=== PATIENT | female | born 1985 | race African-American/Black ===

== ENCOUNTER 2017-03-10 21:38 | Emergency (ER) | payer BC, OTHER ==
[2017-03-11] MEDS ORDERED: ACETAMINOPHEN 325 MG TABLET PO ONE (01:00)
[2017-03-11] MEDS ORDERED: ONDANSETRON 4 MG TAB.RAPDIS SL ONE (01:00)
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
[2017-03-11 02:02] VITALS: BP 110/89
== END 2017-03-11 01:58 | disposition home or self-care (01) ==
LOC: ER 21:38
DX: S39.012A Strain of muscle, fascia and tendon of lower back, initial encounter (principal); S46.912A Strain of unspecified muscle, fascia and tendon at shoulder and upper arm level, left arm, initial encounter; M25.512 Pain in left shoulder; V49.40XA Driver injured in collision with unspecified motor vehicles in traffic accident, initial encounter; E11.9 Type 2 diabetes mellitus without complications
CPT/HCPCS: 99283; 82962; 72110; 73030; S0119

== ENCOUNTER 2017-03-31 07:15 | Emergency (ER) | payer BC, OTHER ==
[2017-03-31 07:28] VITALS: BP 166/106
[2017-03-31 07:57] LABS: APPEARANCE,URINE CLEAR; BILIRUBIN,URINE NEGATIVE (NEGATIVE); GLUCOSE, URINE NEGATIVE (NEGATIVE); KETONES,URINE NEGATIVE (NEGATIVE); LEUKOCYTE ESTERASE,URINE NEGATIVE (NEGATIVE); NITRITE,URINE NEGATIVE (NEGATIVE); PROTEIN,URINE 100 mg/dL (NEGATIVE); URINE SPECIFIC GRAVITY 1.011; UROBILINOGEN,URINE NEGATIVE mg/dL (<2.0)
--- NOTE | 2017-03-31 08:25 | ER Document Report ---
ED General - General Chief Complaint: Urinary Frequency Stated Complaint: URINARY ISSUES Time Seen by Provider: 03/31/17 08:05 TRAVEL OUTSIDE OF THE [place] IN LAST 30 DAYS: No - HPI Patient complains to provider of: Dysuria Notes: Patient coming in with 3 days of dysuria back pain. Patient states pain upon initiation in the midstream. Patient states similar to UTIs in the past. Denies any fever chills nausea vomiting denies any flank pain. Patient is well- hydrated denies any vaginal discharge - Related Data Allergies/Adverse Reactions: No Known Allergies Allergy (Verified 03/31/17 07:28) Past Medical History - Social History Smoking Status: Never Smoker Frequency of alcohol use: None Drug Abuse: None Family History: Reviewed & Not Pertinent Patient has suicidal ideation: No Patient has homicidal ideation: No Pulmonary Medical History: Denies: Hx Asthma, Hx Bronchitis, Hx Pneumonia Neurological Medical History: Reports: Hx Migraine Endocrine Medical History: Reports: Hx Diabetes Mellitus Type 2 Renal/ Medical History: Denies: Hx Peritoneal Dialysis - Immunizations Hx Diphtheria, Pertussis, Tetanus Vaccination: Yes Review of Systems - Review of Systems Constitutional: No symptoms reported EENT: No symptoms reported Cardiovascular: No symptoms reported Respiratory: No symptoms reported Gastrointestinal: No symptoms reported Genitourinary: Dysuria Female Genitourinary: No symptoms reported Musculoskeletal: No symptoms reported Skin: No symptoms reported Hematologic/Lymphatic: No symptoms reported Neurological/Psychological: No symptoms reported -: Yes All other systems reviewed and negative Physical Exam - Vital signs Vitals: Temp Pulse Resp BP Pulse Ox 98.6 F 89 18 166/106 H 100 03/31/17 07:22 03/31/17 07:22 03/31/17 07:22 03/31/17 07:22 03/31/17 07:22 Interpretation: Normal - General General appearance: Appears well, Alert - HEENT Head: Normocephalic, Atraumatic Eyes: Normal Pupils: PERRL - Respiratory Respiratory status: No respiratory distress Chest status: Nontender Breath sounds: Normal Chest palpation: Normal - Cardiovascular Rhythm: Regular Heart sounds: Normal auscultation Murmur: No - Abdominal Inspection: Normal Distension: No distension Bowel sounds: Normal Tenderness: Nontender Organomegaly: No organomegaly - Back Back: Normal, Nontender - Extremities General upper extremity: Normal inspection, Nontender, Normal color, Normal ROM , Normal temperature General lower extremity: Normal inspection, Nontender, Normal color, Normal ROM , Normal temperature, Normal weight bearing. No: Reed's sign - Neurological Neuro grossly intact: Yes Cognition: Normal Orientation: AAOx4 [place] Coma Scale Eye Opening: Spontaneous [place] Coma Scale Verbal: Oriented [place] Coma Scale Motor: Obeys Commands [place] Coma Scale Total: 15 Speech: Normal Motor strength normal: LUE, RUE, LLE, RLE Sensory: Normal - Psychological Associated symptoms: Normal affect, Normal mood - Skin Skin Temperature: Warm Skin Moisture: Dry Skin Color: Normal Course - Re-evaluation Re-evalutation: 03/31/17 14:55 Patient with uncomplicated UTI per HPI. Patient was started on Macrobid and discharged. - Vital Signs Vital signs: Temp Pulse Resp BP Pulse Ox 98.6 F 89 18 166/106 H 100 03/31/17 07:22 03/31/17 07:22 03/31/17 07:22 03/31/17 07:22 03/31/17 07:22 - Laboratory Laboratory results interpreted by me: 03/31/17 07:34 Urine Protein 100 H Urine Blood MODERATE H Discharge - Discharge Clinical Impression: UTI (urinary tract infection) Qualifiers: Urinary tract infection type: site unspecified Hematuria presence: with hematuria Qualified Code(s): N39.0 - Urinary tract infection, site not specified Disposition: HOME, SELF-CARE Instructions: Urinary Tract Infection ([facility]), Urinary Anesthetic Agent ([facility]), Nitrofurantoin ([facility]) Additional Instructions: Urinalysis is signs and symptoms of the beginning of a urinary tract infection. We will treat with 5 days of Macrobid. Please take all the antibiotics. He may also take the Pyridium prescribed for pain control Tylenol Motrin for pain control. He may ask her pharmacist about [id number] Azo if the Pyridium is too expensive. Prescriptions: Nitrofurantoin/Nitrofuran Mac [Macrobid 100 mg Capsule] 1 tab PO BID #10 capsule Phenazopyridine HCl [Pyridium 100 Mg Tablet] 100 mg PO TID #15 tablet Forms: Return to Work Referrals: REY TRIPP MD [Primary Care Provider] - Follow up as needed
== END 2017-03-31 08:45 | disposition home or self-care (01) ==
LOC: ER 07:15
DX: N39.0 Urinary tract infection, site not specified (principal); E11.9 Type 2 diabetes mellitus without complications
CPT/HCPCS: 81001; 81025; 99283

== ENCOUNTER → 2017-08-20 | Outpatient (CLI) | payer BC ==
[2017-08-20 16:14] LABS: ALANINE AMINOTRANSFERASE 24 U/L (9-52); ALKALINE PHOSPHATASE 68 U/L (38-126); ANION GAP 9 (5-19); ASPARTATE AMINO TRANSFERASE 21 U/L (14-36); BILIRUBIN,DIRECT 0.1 mg/dL (0.0-0.4); BILIRUBIN,TOTAL 0.2 mg/dL (0.2-1.3); BLOOD UREA NITROGEN 19 mg/dL (7-20); CALCIUM 8.8 mg/dL (8.4-10.2); CARBON DIOXIDE 22 mmol/L (22-30); CHLORIDE 106 mmol/L (98-107); GLUCOSE 93 mg/dL (75-110); LDH 318 U/L (313-618); POTASSIUM 4.3 mmol/L (3.6-5.0); SODIUM 136.5 mmol/L (137-145); TOTAL PROTEIN 6.3 g/dL (6.3-8.2); URIC ACID 6.8 mg/dL (2.5-6.2)
== END ==
LOC: OCH 14:23
PROVIDERS: ATTEND Nurse Practitioner Women's Health
DX: Z34.01 Encounter for supervision of normal first pregnancy, first trimester (principal)
CPT/HCPCS: 36415; 80053; 83615; 84550

== ENCOUNTER 2018-02-25 14:59 | Emergency (ER) | payer BC, MEDICAID ==
--- NOTE | 2018-02-25 16:01 | ER Document Report ---
ED Blood Pressure Problem - General Mode of Arrival: Ambulatory Information source: Patient TRAVEL OUTSIDE OF THE [place] IN LAST 30 DAYS: No - General Chief Complaint: High Blood Pressure Stated Complaint: BLOOD PRESSURE ISSUES Time Seen by Provider: 02/25/18 15:28 Notes: 32 y.o female presents to the ED from the [facility] with elevated blood pressure. Pt reports that she just had an ultrasound at [facility], confirming that she has a valid intrauterine . She reports that someone from the [facility] called in a prescription for HTN. She states that she was told to come here concerning her BP and to get a dose of BP medication before getting her medication from the pharmacy. Pt denies any WALLER, dizziness or vomiting. Patient reports a miscarriage earlier this year; A1. (LIZ HARRIS) - Related Data Allergies/Adverse Reactions: No Known Allergies Allergy (Verified 02/25/18 15:00) Past Medical History - General Information source: Patient - Social History Smoking Status: Unknown if Ever Smoked Family History: Reviewed & Not Pertinent Neurological Medical History: Reports: Hx Migraine Endocrine Medical History: Reports: Hx Diabetes Mellitus Type 2 Renal/ Medical History: Denies: Hx Peritoneal Dialysis - Immunizations Hx Diphtheria, Pertussis, Tetanus Vaccination: Yes Review of Systems - Review of Systems Constitutional: No symptoms reported EENT: No symptoms reported Cardiovascular: See HPI, Other - elevated BP. denies: Dizziness Respiratory: No symptoms reported Gastrointestinal: See HPI. denies: Vomiting Genitourinary: No symptoms reported Female Genitourinary: See HPI, Musculoskeletal: No symptoms reported Skin: No symptoms reported Hematologic/Lymphatic: No symptoms reported Neurological/Psychological: See HPI. denies: Headaches -: Yes All other systems reviewed and negative Physical Exam - Vital signs Vitals: Temp Pulse Resp BP Pulse Ox 98.1 F 83 18 178/101 H 98 02/25/18 15:09 02/25/18 15:09 02/25/18 15:02/25/18 15:02/25/18 15:09 - Notes Notes: Physical Exam: General: Alert, appears well. HEENT: Normocephalic. Atraumatic. PERRL. Extraocular movements intact. Oropharynx clear. Neck: Supple. Non-tender. Respiratory: No respiratory distress. Clear and equal breath sounds bilaterally. Cardiovascular: Regular rate and rhythm. Abdominal: Normal Inspection. Non-tender. No distension. Normal Bowel Sounds. Back: Non-tender. No deformity or step off. Extremities: Moves all four extremities. Upper extremities: Normal inspection. Normal ROM. Lower extremities: Normal inspection. No edema. Normal ROM. Neurological: Normal cognition. AAOx3. Normal speech. Psychological: Normal affect. Normal Mood. Skin: Warm. Dry. Normal color. (LIZ HARRIS) - Re-evaluation Re-evalutation: 02/25/18 16:03 Patient was sent from [facility] for concern of hypertension. They prescribed her 200 mg labetalol twice a day she has not picked it up yet she was told to come the emergency department. I discussed this case with Dr. Cunningham. He states that she should not have been sent to emergency room and he agrees not acutely lowering patient's blood pressure who is not symptomatic. She does not have any headaches vision changes dizziness chest pain or shortness of breath. We will provide first dose of labetalol since she is in the emergency department instructed to pecan picker her prescription tonight so she can start taking it in the morning. She has follow-up appointment with [facility] this coming Thursday. 02/25/18 16:04 Of note, she has pictures of valid intrauterine from ultrasound that was performed at [facility] today. (GONZALEZ PUENTE) - Vital Signs Vital signs: Temp Pulse Resp BP Pulse Ox 97.9 F 85 18 152/97 H 99 02/25/18 16:15 02/25/18 16:15 02/25/18 16:15 02/25/18 16:15 02/25/18 16:15 Discharge - Discharge Clinical Impression: Qualifiers: Weeks of gestation: 9 weeks Qualified Code(s): Z3A.09 - 9 weeks gestation of Disposition: HOME, SELF-CARE Instructions: Hypertension in ([facility]) Additional Instructions: Please follow-up with [facility] with your previously scheduled appointment this coming Thursday. Please begin taking the blood pressure medications they prescribed to you Referrals: RACQUEL LEMUS NP [NO LOCAL MD] - Follow up as needed Scribe Attestation: 02/25/18 22:57 I personally performed the services described documentation, reviewed and edited the documentation which was dictated to describe my presence, and it accurately records my words and actions. (GONZALEZ PUENTE) Scribe Documentation - Scribe Written by Froilan:: Froilan Queen 02/25/18 [id number] acting as scribe for :: Lee
[2018-02-25] MEDS ORDERED: LABETALOL HCL 200 MG TABLET PO ONE (16:06)
[2018-02-25 16:37] VITALS: BP 152/97
== END 2018-02-25 16:17 | disposition home or self-care (01) ==
LOC: ER 14:59
DX: O16.1 Unspecified maternal hypertension, first trimester (principal); O24.911 Unspecified diabetes mellitus in pregnancy, first trimester; Z3A.09 9 weeks gestation of pregnancy; Z79.899 Other long term (current) drug therapy
CPT/HCPCS: 99283

== ENCOUNTER 2018-04-02 13:15 | Emergency (ER) | payer BC, MEDICAID ==
--- NOTE | 2018-04-02 14:07 | ER Document Report ---
ED Medical Screen (RME) - General Chief Complaint: Chest Pain Stated Complaint: RIGHT SIDE PAIN Time Seen by Provider: 04/02/18 14:04 Mode of Arrival: Ambulatory Information source: Patient TRAVEL OUTSIDE OF THE [place] IN LAST 30 DAYS: No - HPI Patient complains to provider of: R side pain Onset: Yesterday - pt is approx 15 wks with c/o R-sided abd pain for the past day - Related Data Allergies/Adverse Reactions: No Known Allergies Allergy (Verified 02/25/18 15:00) Past Medical History - Past Medical History Cardiac Medical History: Reports: Hx Hypertension Pulmonary Medical History: Denies: Hx Asthma, Hx Bronchitis, Hx Pneumonia Neurological Medical History: Reports: Hx Migraine Endocrine Medical History: Reports: Hx Diabetes Mellitus Type 2 Renal/ Medical History: Denies: Hx Peritoneal Dialysis - Immunizations Hx Diphtheria, Pertussis, Tetanus Vaccination: Yes Physical Exam - Vital signs Vitals: Temp Pulse Resp BP Pulse Ox 98.2 F 85 18 158/95 H 100 04/02/18 13:22 04/02/18 13:22 04/02/18 13:22 04/02/18 13:22 04/02/18 13:22 Course - Vital Signs Vital signs: Temp Pulse Resp BP Pulse Ox 98.2 F 85 18 158/95 H 100 04/02/18 13:22 04/02/18 13:22 04/02/18 13:22 04/02/18 13:22 04/02/18 13:22
[2018-04-02 14:56] LABS: ABSOLUTE EOSINOPHILS # (AUTO) 0.1 10^3/uL (0.0-0.6); ABSOLUTE LYMPHOCYTES (AUTO) 1.9 10^3/uL (0.5-4.7); ABSOLUTE MONOCYTES (AUTO) 0.5 10^3/uL (0.1-1.4); ABSOLUTE NEUT (AUTO) 5.3 10^3/uL (1.7-8.2); BASOPHILS % (AUTO) 0.3 % (0-2); EOSINOPHILS % (AUTO) 1.3 % (0-6); HEMATOCRIT 30.7 % (36.0-47.0); HEMOGLOBIN 10.1 g/dL (12.0-15.5); LYMPHOCYTES % (AUTO) 23.7 % (13-45); MEAN CORPUSCULAR HEMOGLOBIN 24.4 pg (27.0-33.4); MEAN CORPUSCULAR HGB CONC 32.9 g/dL (32.0-36.0); MEAN CORPUSCULAR VOLUME 74 fl (80-97); MONOCYTES % (AUTO) 6.4 % (3-13); PLATELET COUNT 346 10^3/uL (150-450); RED BLOOD COUNT 4.14 10^6/uL (3.72-5.28); SEGMENTED NEUTROPHILS % (AUTO) 68.3 % (42-78); TOTAL CELLS COUNTED % (AUTO) 100 %; WHITE BLOOD COUNT 7.8 10^3/uL (4.0-10.5)
[2018-04-02 15:04] LABS: APPEARANCE,URINE CLOUDY; BILIRUBIN,URINE NEGATIVE (NEGATIVE); GLUCOSE, URINE 50 mg/dL (NEGATIVE); KETONES,URINE TRACE mg/dL (NEGATIVE); LEUKOCYTE ESTERASE,URINE NEGATIVE (NEGATIVE); NITRITE,URINE NEGATIVE (NEGATIVE); PROTEIN,URINE >=500 mg/dL (NEGATIVE); UROBILINOGEN,URINE NEGATIVE mg/dL (<2.0)
[2018-04-02 15:05] LABS: COLOR,URINE YELLOW
[2018-04-02 15:35] LABS: ALANINE AMINOTRANSFERASE 33 U/L (9-52); ALBUMIN 2.4 g/dL (3.5-5.0); ALKALINE PHOSPHATASE 66 U/L (38-126); ANION GAP 10 (5-19); ASPARTATE AMINO TRANSFERASE 35 U/L (14-36); BLOOD UREA NITROGEN 16 mg/dL (7-20); CALCIUM 8.5 mg/dL (8.4-10.2); CARBON DIOXIDE 21 mmol/L (22-30); CHLORIDE 106 mmol/L (98-107); CREATINE KINASE 528 U/L (30-135); GLUCOSE 122 mg/dL (75-110); POTASSIUM 4.2 mmol/L (3.6-5.0); SODIUM 136.6 mmol/L (137-145); TOTAL PROTEIN 5.3 g/dL (6.3-8.2)
[2018-04-02 16:05] LABS: CREATINE KINASE MB 1.98 ng/mL (<4.55)
[2018-04-02 16:07] LABS: TROPONIN I < 0.012 ng/mL
--- NOTE | 2018-04-02 16:28 | RADIOLOGY REPORT (SQ) ---
EXAM DESCRIPTION: U/S ABDOMEN LIMITED W/O DOP COMPLETED DATE/TIME: 04/02/2018 4:19 pm REASON FOR STUDY: RUQ abd pain COMPARISON: None. TECHNIQUE: Dynamic and static grayscale images acquired of the abdomen and recorded on PACS. Additio nal selected color Doppler and spectral images recorded. LIMITATIONS: None. FINDINGS: PANCREAS: No masses. Visualized pancreatic duct normal caliber. LIVER: No masses. Echotexture normal. LIVER VASCULATURE: Normal directional flow of the main portal vein and hepatic veins. GALLBLADDER: No stones. Normal wall thickness. No pericholecystic fluid. ULTRASOUND-DETECTED SADLER'S SIGN: Negative. INTRAHEPATIC DUCTS AND COMMON DUCT: CBD and intrahepatic ducts normal caliber. No filling defects. INFERIOR VENA CAVA: Normal flow. AORTA: No aneurysm. RIGHT KIDNEY: Normal size. Normal echogenicity. No solid or suspicious masses. No hydronephrosis. No calcifications. PERITONEAL AND RIGHT PLEURAL SPACE: No ascites or effusions. OTHER: No other significant findings. IMPRESSION: NORMAL RIGHT UPPER QUADRANT ULTRASOUND. TECHNICAL DOCUMENTATION: JOB ID: [id number] [employer]- All Rights Reserved Reading location - IP/workstation name: [facility][email or web address]
[2018-04-02] MEDS ORDERED: LIDOCAINE 2% VISCOUS SOLN 20 ML UDCUP PO ONE (16:31)
[2018-04-02] MEDS ORDERED: MAG HYDROX/AL HYDROX/SIMETH SUSP 30 ML UDCUP PO ONE (16:31)
--- NOTE | 2018-04-02 16:33 | ER Document Report ---
ED General - General Chief Complaint: Chest Pain Stated Complaint: RIGHT SIDE PAIN Time Seen by Provider: 04/02/18 14:04 Mode of Arrival: Ambulatory Information source: Patient Notes: Patient is currently 15 weeks . Patient complains of right-sided chest discomfort off and on since yesterday. Patient states movement increases the pain and pain is relieved with belching. Patient denies any urinary symptoms vaginal bleeding or discharge. Patient does complain of sinus congestion. Patient states that she is currently high risk and has had protein in her urine and as a result she was placed on Lovenox 1 week ago to prevent any type of blood clots. TRAVEL OUTSIDE OF THE [place] IN LAST 30 DAYS: No - HPI Onset: Yesterday Onset/Duration: Waxing and waning Quality of pain: Achy Pain Level: 3 Associated symptoms: Chest pain. denies: Nonproductive cough, Productive cough , Nausea, Vomiting, Shortness of breath Exacerbated by: Movement Relieved by: Other - Belching Similar symptoms previously: No Recently seen / treated by doctor: No - Related Data Allergies/Adverse Reactions: No Known Allergies Allergy (Verified 02/25/18 15:00) Past Medical History - General Information source: Patient - Social History Smoking Status: Never Smoker Frequency of alcohol use: None Drug Abuse: None Occupation: Customer service Family History: Reviewed & Not Pertinent Patient has suicidal ideation: No Patient has homicidal ideation: No - Past Medical History Cardiac Medical History: Reports: Hx Hypertension Pulmonary Medical History: Denies: Hx Asthma, Hx Bronchitis, Hx Pneumonia Neurological Medical History: Reports: Hx Migraine Endocrine Medical History: Reports: Hx Diabetes Mellitus Type 2 Renal/ Medical History: Denies: Hx Peritoneal Dialysis GI Medical History: Reports: Hx Gastroesophageal Reflux Disease Past Surgical History: Reports: Other - Eye surgery - Immunizations Hx Diphtheria, Pertussis, Tetanus Vaccination: Yes Review of Systems - Review of Systems Constitutional: No symptoms reported. denies: Fever EENT: No symptoms reported Cardiovascular: Chest pain. denies: Dizziness Respiratory: No symptoms reported. denies: Cough, Short of breath Gastrointestinal: No symptoms reported. denies: Abdominal pain, Nausea, Vomiting Genitourinary: No symptoms reported. denies: Dysuria Female Genitourinary: . denies: Vaginal discharge, Vaginal bleeding Musculoskeletal: No symptoms reported. denies: Back pain, Neck pain Skin: No symptoms reported Hematologic/Lymphatic: No symptoms reported Neurological/Psychological: No symptoms reported. denies: Headaches Physical Exam - Vital signs Vitals: Temp Pulse Resp BP Pulse Ox 98.2 F 85 18 158/95 H 100 04/02/18 13:22 04/02/18 13:22 04/02/18 13:22 04/02/18 13:22 04/02/18 13:22 - General General appearance: Appears well, Alert In distress: None - HEENT Head: Normocephalic, Atraumatic Eyes: Normal Conjunctiva: Normal Nasal: Normal Mouth/Lips: Normal Mucous membranes: Normal Neck: Normal, Supple. No: Lymphadenopathy - Respiratory Respiratory status: No respiratory distress Chest status: Tender Breath sounds: Normal Chest palpation: Normal - Cardiovascular Rhythm: Regular Heart sounds: S1 appreciated, S2 appreciated Murmur: No - Abdominal Inspection: Obese Distension: No distension Bowel sounds: Normal Tenderness: Nontender Organomegaly: No organomegaly - Back Back: Normal, Nontender. No: CVA tenderness - Extremities General upper extremity: Normal inspection, Normal ROM General lower extremity: Normal inspection, Normal ROM - Neurological Neuro grossly intact: Yes Cognition: Normal [place] Coma Scale Eye Opening: Spontaneous [place] Coma Scale Verbal: Oriented [place] Coma Scale Motor: Obeys Commands [place] Coma Scale Total: 15 - Psychological Associated symptoms: Normal affect, Normal mood - Skin Skin Temperature: Warm Skin Moisture: Dry Skin Color: Ecchymosis - abd ecchymosis from lovenox injections Course - Re-evaluation Re-evalutation: 04/02/18 17:45 Patient reports that chest pain symptoms resolved after GI cocktail. Patient denies any abdominal pain symptoms, difficulty breathing or shortness of breath. Patient not tachycardic nor hypoxic. Consulted with Dr. martinez regarding patient presentation and diagnostic evaluation. Patient is currently already taking Lovenox, no concern for PE at this time. Patient's pain symptoms resolved with belching as well as after GI cocktail. No dyspnea symptoms, no cough or cold symptoms. The patient has atypical chest pain as the patient's chest pain is not suggestive of pulmonary embolus, cardiac ischemia, aortic dissection, or other serious etiology. Given the extremely low risk of these diagnoses for the test in evaluation for these possibilities does not appear to be indicated at this time. Patient has been instructed to return if the symptoms worsen or change in any way. 08/10/18 18:19 Patient has been tolerating oral fluids without - Vital Signs Vital signs: Temp Pulse Resp BP Pulse Ox 98.4 F 78 18 138/70 H 98 04/02/18 18:35 04/02/18 18:35 04/02/18 18:35 04/02/18 18:35 04/02/18 18:35 - Laboratory Result Diagrams: 04/02/18 14:30 04/02/18 14:30 Laboratory results interpreted by me: 04/02/18 04/02/18 04/02/18 14:30 14:30 14:30 Hgb 10.1 L Hct 30.7 L MCV 74 L MCH 24.4 L RDW 20.0 H Sodium 136.6 L Carbon Dioxide 21 L Est GFR (Non-Af Amer) 55 L Glucose 122 H Total Bilirubin 0.1 L Creatine Kinase 528 H Total Protein 5.3 L Albumin 2.4 L Beta HCG, Quant 74103.00 H Urine Protein >=500 H Urine Glucose (UA) 50 H Urine Ketones TRACE H Urine Blood SMALL H 04/02/18 18:19 Labs- Entire Visit 04/02/18 04/02/18 04/02/18 14:30 14:30 14:30 WBC 7.8 RBC 4.14 Hgb 10.1 L Hct 30.7 L MCV 74 L MCH 24.4 L MCHC 32.9 RDW 20.0 H Plt Count 346 Seg Neutrophils % 68.3 Lymphocytes % 23.7 Monocytes % 6.4 Eosinophils % 1.3 Basophils % 0.3 Absolute Neutrophils 5.3 Absolute Lymphocytes 1.9 Absolute Monocytes 0.5 Absolute Eosinophils 0.1 Absolute Basophils 0.0 Sodium 136.6 L Potassium 4.2 Chloride 106 Carbon Dioxide 21 L Anion Gap 10 BUN 16 Creatinine 1.14 Est GFR ( Amer) > 60 Est GFR (Non-Af Amer) 55 L Glucose 122 H Calcium 8.5 Total Bilirubin 0.1 L Direct Bilirubin 0.1 Neonat Total Bilirubin Not Reportable Neonat Direct Bilirubin Not Reportable Neonat Indirect Bili Not Reportable AST 35 ALT 33 Alkaline Phosphatase 66 Creatine Kinase 528 H CK-MB (CK-2) 1.98 Troponin I < 0.012 Total Protein 5.3 L Albumin 2.4 L Beta HCG, Quant 86401.00 H Total Beta HCG POSITIVE Urine Color Urine Appearance Urine pH Ur Specific [place] Urine Protein Urine Glucose (UA) Urine Ketones Urine Blood Urine Nitrite Urine Bilirubin Urine Urobilinogen Ur Leukocyte Esterase Urine WBC (Auto) Urine RBC (Auto) U Hyaline Cast (Auto) Urine Bacteria (Auto) Squamous Epi Cells Auto Urine Mucus (Auto) Urine Ascorbic Acid 04/02/18 14:30 WBC RBC Hgb Hct MCV MCH MCHC RDW Plt Count Seg Neutrophils % Lymphocytes % Monocytes % Eosinophils % Basophils % Absolute Neutrophils Absolute Lymphocytes Absolute Monocytes Absolute Eosinophils Absolute Basophils Sodium Potassium Chloride Carbon Dioxide Anion Gap BUN Creatinine Est GFR ( Amer) Est GFR (Non-Af Amer) Glucose Calcium Total Bilirubin Direct Bilirubin Neonat Total Bilirubin Neonat Direct Bilirubin Neonat Indirect Bili AST ALT Alkaline Phosphatase Creatine Kinase CK-MB (CK-2) Troponin I Total Protein Albumin Beta HCG, Quant Total Beta HCG Urine Color YELLOW Urine Appearance CLOUDY Urine pH 5.0 Ur Specific [place] 1.030 Urine Protein >=500 H Urine Glucose (UA) 50 H Urine Ketones TRACE H Urine Blood SMALL H Urine Nitrite NEGATIVE Urine Bilirubin NEGATIVE Urine Urobilinogen NEGATIVE Ur Leukocyte Esterase NEGATIVE Urine WBC (Auto) 9 Urine RBC (Auto) 21 U Hyaline Cast (Auto) 2 Urine Bacteria (Auto) TRACE Squamous Epi Cells Auto 12 Urine Mucus (Auto) MANY Urine Ascorbic Acid NEGATIVE - Diagnostic Test Radiology reviewed: Reports reviewed Discharge - Discharge Clinical Impression: GERD (gastroesophageal reflux disease) Qualifiers: Esophagitis presence: esophagitis presence not specified Qualified Code(s): K21.9 - Gastro-esophageal reflux disease without esophagitis Chest pain Qualifiers: Chest pain type: unspecified Qualified Code(s): R07.9 - Chest pain, unspecified Condition: Stable Disposition: HOME, SELF-CARE Instructions: Chest Pain of Unclear Cause ([facility]), Reflux Disease (GERD) ([facility]) Additional Instructions: Return immediately for any new or worsening symptoms Followup with your primary care provider, call tomorrow to make a followup appointment Prescriptions: Sucralfate [Carafate 1 gm Tablet] 1 gm PO ACHS #40 tablet Forms: Return to Work Referrals: [facility] [Provider Group] - 04/05/18
[2018-04-02 16:39] LABS: BILIRUBIN,TOTAL 0.1 mg/dL (0.2-1.3)
[2018-04-02 16:40] LABS: BILIRUBIN,DIRECT 0.1 mg/dL (0.0-0.4)
--- NOTE | 2018-04-02 16:59 | RADIOLOGY REPORT (SQ) ---
EXAM DESCRIPTION: CHEST 2 VIEWS COMPLETED DATE/TIME: 04/02/2018 4:51 pm REASON FOR STUDY: cp COMPARISON: None. EXAM PARAMETERS: NUMBER OF VIEWS: two views TECHNIQUE: Digital Frontal and Lateral radiographic views of the chest acquired. RADIATION DOSE: NA LIMITATIONS: none FINDINGS: LUNGS AND PLEURA: No opacities, masses or pneumothorax. No pleural effusion. MEDIASTINUM AND HILAR STRUCTURES: No masses or contour abnormalities. HEART AND VASCULAR STRUCTURES: Heart normal size. No evidence for failure. BONES: No acute findings. HARDWARE: None in the chest. OTHER: No other significant finding. IMPRESSION: NO ACUTE RADIOGRAPHIC FINDING IN THE CHEST. TECHNICAL DOCUMENTATION: JOB ID: [id number] [employer]- All Rights Reserved Reading location - IP/workstation name: [email or web address]
[2018-04-02 18:37] VITALS: BP 138/70
--- NOTE | 2018-04-03 00:10 | EKG REPORT ---
SEVERITY:- NORMAL ECG - SINUS RHYTHM : Confirmed by: Karena Olivares MD 03-Apr-2018 00:09:59
== END 2018-04-02 18:36 | disposition home or self-care (01) ==
LOC: ER 13:15
DX: O99.612 Diseases of the digestive system complicating pregnancy, second trimester (principal); K21.9 Gastro-esophageal reflux disease without esophagitis; O12.12 Gestational proteinuria, second trimester; O16.2 Unspecified maternal hypertension, second trimester; O24.112 Pre-existing type 2 diabetes mellitus, in pregnancy, second trimester; E11.9 Type 2 diabetes mellitus without complications; O26.892 Other specified pregnancy related conditions, second trimester; R07.9 Chest pain, unspecified; R09.81 Nasal congestion; Z3A.15 15 weeks gestation of pregnancy
CPT/HCPCS: 93005; 99285; 36415; 82553; 82550; 84702; 85025; 80053; 81001; 84484; 71046; 76705; 93010; J3490

== ENCOUNTER → 2018-04-06 | Outpatient (CLI) | payer BC, MEDICAID ==
[2018-04-06 10:44] LABS: ABSOLUTE EOSINOPHILS # (AUTO) 0.1 10^3/uL (0.0-0.6); ABSOLUTE LYMPHOCYTES (AUTO) 2.4 10^3/uL (0.5-4.7); ABSOLUTE MONOCYTES (AUTO) 0.6 10^3/uL (0.1-1.4); BASOPHILS % (AUTO) 0.2 % (0-2); EOSINOPHILS % (AUTO) 1.2 % (0-6); HEMATOCRIT 31.7 % (36.0-47.0); HEMOGLOBIN 10.6 g/dL (12.0-15.5); LYMPHOCYTES % (AUTO) 23.6 % (13-45); MEAN CORPUSCULAR HEMOGLOBIN 24.8 pg (27.0-33.4); MEAN CORPUSCULAR HGB CONC 33.5 g/dL (32.0-36.0); MEAN CORPUSCULAR VOLUME 74 fl (80-97); PLATELET COUNT 360 10^3/uL (150-450); RED BLOOD COUNT 4.28 10^6/uL (3.72-5.28); RED CELL DISTRIBUTION WIDTH 19.3 % (11.5-14.0); TOTAL CELLS COUNTED % (AUTO) 100 %; WHITE BLOOD COUNT 10.1 10^3/uL (4.0-10.5)
[2018-04-06 10:45] LABS: APPEARANCE,URINE CLOUDY; BILIRUBIN,URINE NEGATIVE (NEGATIVE); COLOR,URINE YELLOW; GLUCOSE, URINE 50 mg/dL (NEGATIVE); KETONES,URINE TRACE mg/dL (NEGATIVE); LEUKOCYTE ESTERASE,URINE NEGATIVE (NEGATIVE); NITRITE,URINE NEGATIVE (NEGATIVE); PROTEIN,URINE >=500 mg/dL (NEGATIVE); URINE SPECIFIC GRAVITY 1.032; UROBILINOGEN,URINE NEGATIVE mg/dL (<2.0)
[2018-04-06 11:22] LABS: ALANINE AMINOTRANSFERASE 33 U/L (9-52); ALBUMIN 2.5 g/dL (3.5-5.0); ALKALINE PHOSPHATASE 67 U/L (38-126); ANION GAP 6 (5-19); ASPARTATE AMINO TRANSFERASE 39 U/L (14-36); BILIRUBIN,DIRECT 0.2 mg/dL (0.0-0.4); BILIRUBIN,TOTAL 0.2 mg/dL (0.2-1.3); BLOOD UREA NITROGEN 20 mg/dL (7-20); CALCIUM 8.5 mg/dL (8.4-10.2); CARBON DIOXIDE 25 mmol/L (22-30); CHLORIDE 104 mmol/L (98-107); GLUCOSE 107 mg/dL (75-110); POTASSIUM 3.9 mmol/L (3.6-5.0); SODIUM 135.3 mmol/L (137-145); TOTAL PROTEIN 5.5 g/dL (6.3-8.2); URIC ACID 6.5 mg/dL (2.5-6.2)
[2018-04-06 11:23] LABS: URINE CREATININE 267.1 mg/dL (16-327)
[2018-04-06 15:07] LABS: URINE PROTEIN 2673.1 mg/dL (<12)
== END ==
LOC: OD 09:40
PROVIDERS: ATTEND Internal Medicine Nephrology
DX: O12.10 Gestational proteinuria, unspecified trimester (principal); O24.919 Unspecified diabetes mellitus in pregnancy, unspecified trimester; Z3A.00 Weeks of gestation of pregnancy not specified
CPT/HCPCS: 36415; 80053; 81001; 82570; 84156; 84550; 85025

== ENCOUNTER 2018-04-18 07:53 | Emergency (ER) | payer BC, MEDICAID ==
[2018-04-18 08:01] VITALS: BP 133/92
[2018-04-18 09:00] LABS: APPEARANCE,URINE SLIGHTLY-CLOUDY; BILIRUBIN,URINE NEGATIVE (NEGATIVE); COLOR,URINE YELLOW; GLUCOSE, URINE 50 mg/dL (NEGATIVE); KETONES,URINE NEGATIVE (NEGATIVE); LEUKOCYTE ESTERASE,URINE NEGATIVE (NEGATIVE); NITRITE,URINE NEGATIVE (NEGATIVE); PROTEIN,URINE >=500 mg/dL (NEGATIVE); URINE SPECIFIC GRAVITY 1.018; UROBILINOGEN,URINE NEGATIVE mg/dL (<2.0)
--- NOTE | 2018-04-18 09:00 | ER Document Report ---
HPI - HPI Pain Level: 3 Notes: Patient is a 33-year-old female approximately 16 weeks with a history of known protein in her urine, hypertension, type II diabetic who presents to the ED complaining of urinary frequency, foul odor, and mild burning 1-2 days. Patient states that she has had UTIs in the past. Patient states that she is seeing specialists because of her protein in the urine and elevated glucose while being . They do have her on Lovenox daily through internal medicine. She is scheduled to see a fuel system maintenance worker tomorrow. Patient states that she is only here for evaluation of her urine and otherwise feels well. She is eating and drinking without any difficulties. She is having normal bowel movements. She denies any drug allergies. No other concerns or complaints. No history of preeclampsia in the past. Denies any headache, fever, neck pain, changes in vision/speech/mentation/hearing, URI, sore throat, chest pain, palpitations, syncope, cough, shortness of breath, wheeze, dyspnea, abdominal pain, nausea/vomiting/diarrhea, back pain, loss of control of bowel or bladder, numbness/tingling, or rash. No vaginal discharge/ odor/bleeding. - ROS Systems Reviewed and Negative: Yes All other systems reviewed and negative - CONSTITUTIONAL Constitutional: DENIES: Fever, Chills - CARDIOVASCULAR Cardiovascular: DENIES: Chest pain - RESPIRATORY Respiratory: DENIES: Trouble Breathing - GASTROINTESTINAL Gastrointestinal: DENIES: Abdominal Pain - URINARY Urinary: REPORTS: Dysuria - REPRODUCTIVE LMP: 12/31/17 Reproductive: REPORTS: : Past Medical History - Social History Smoking Status: Never Smoker Family History: Reviewed & Not Pertinent Patient has suicidal ideation: No Patient has homicidal ideation: No - Past Medical History Cardiac Medical History: Reports: Hx Hypertension Pulmonary Medical History: Denies: Hx Asthma, Hx Bronchitis, Hx Pneumonia Neurological Medical History: Reports: Hx Migraine Endocrine Medical History: Reports: Hx Diabetes Mellitus Type 2 Renal/ Medical History: Denies: Hx Peritoneal Dialysis GI Medical History: Reports: Hx Gastroesophageal Reflux Disease Past Surgical History: Reports: Other - Eye surgery - Immunizations Hx Diphtheria, Pertussis, Tetanus Vaccination: Yes Vertical Provider Document - CONSTITUTIONAL Agree With Documented VS: Yes Notes: PHYSICAL EXAMINATION: GENERAL: Well-appearing, well-nourished and in no acute distress. LUNGS: Breath sounds clear to auscultation bilaterally and equal. No wheezes rales or rhonchi. HEART: Regular rate and rhythm without murmurs, rubs, gallops. ABDOMEN: Soft, nontender, nondistended abdomen. No guarding, no rebound. No masses appreciated. Normal bowel sounds present. No CVA tenderness bilaterally. Musculoskeletal: FROM to passive/active. Strength 5+/5. Extremities: No cyanosis, clubbing, or edema b/l. Peripheral pulses 2+. Capillary refill less than 3 seconds. NEUROLOGICAL: Normal speech, normal gait. PSYCH: Normal mood, normal affect. SKIN: Warm, Dry, normal turgor, no rashes or lesions noted. - INFECTION CONTROL TRAVEL OUTSIDE OF THE [place] IN LAST 30 DAYS: No Course - Re-evaluation Re-evalutation: 04/18/18 09:27 Patient is an afebrile, well-hydrated, 33-year-old female who presents to the ED with dysuria without evidence of gross urinary infection at this time. Vitals are acceptable without any significant tachycardia, tachypnea, or hypoxia. Blood pressures been closely monitored by specialist she is . PE is otherwise unremarkable. Patient's abdomen is soft and nontender. Urinalysis was unremarkable at this time. Urine culture is pending. Patient is tolerating p.o. without difficulties and is nontoxic-appearing. No other labs or imaging warranted at this time based on H&P. Low suspicion for any sepsis, meningitis, severe dehydration, respiratory compromise, acute abdomen, or other systemic emergent condition at this time. Patient is aware that condition can change from initial presentation and she needs to monitor symptoms closely and seek medical attention with any acute changes. Conservative measures for symptoms. Recheck with your PCM/specialist in 2-3 days. Keep consult cardiology tomorrow. Return to the ED with any worsening/ concerning symptoms otherwise as reviewed in discharge. Patient is in agreement. - Vital Signs Vital signs: Temp Pulse Resp BP Pulse Ox 97.6 F 87 16 133/92 H 99 04/18/18 07:59 04/18/18 07:59 04/18/18 07:59 04/18/18 07:59 04/18/18 07:59 Discharge - Discharge Clinical Impression: Dysuria Condition: Stable Disposition: HOME, SELF-CARE Additional Instructions: Push fluids (i.e. water, cranberry juice) Proper hygenic technique Keep the skin clean Tylenol as needed Take medications as directed F/u with your PCM/OBGYN in 2-3 days for a recheck Keep consult with your specialists as scheduled Return to the ED with any worsening symptoms and/or development of fever, headache, chest pain, palpitations, syncope, shortness of breath, trouble breathing, abdominal pain, n/v/d, blood in stool/urine, loss of control of bowel /bladder, urinary retention, or other worsening symptoms that are concerning to you. Referrals: Mikey ROYAL MD [ACTIVE STAFF] - Follow up as needed
== END 2018-04-18 09:37 | disposition home or self-care (01) ==
LOC: ER 07:53
DX: O26.899 Other specified pregnancy related conditions, unspecified trimester (principal); R30.0 Dysuria; R35.0 Frequency of micturition; O16.9 Unspecified maternal hypertension, unspecified trimester; O24.119 Pre-existing type 2 diabetes mellitus, in pregnancy, unspecified trimester; E11.9 Type 2 diabetes mellitus without complications; Z3A.00 Weeks of gestation of pregnancy not specified; Z79.899 Other long term (current) drug therapy; Z87.440 Personal history of urinary (tract) infections
CPT/HCPCS: 81001; 87086; 87088; 87186; 99283

== ENCOUNTER → 2018-05-31 | Outpatient (CLI) | payer BC, MEDICAID ==
[2018-05-31 15:34] LABS: HEMATOCRIT 28.1 % (36.0-47.0); HEMOGLOBIN 9.6 g/dL (12.0-15.5); MEAN CORPUSCULAR HEMOGLOBIN 26.5 pg (27.0-33.4); MEAN CORPUSCULAR HGB CONC 34.3 g/dL (32.0-36.0); MEAN CORPUSCULAR VOLUME 77 fl (80-97); PLATELET COUNT 354 10^3/uL (150-450); RED BLOOD COUNT 3.63 10^6/uL (3.72-5.28); RED CELL DISTRIBUTION WIDTH 15.5 % (11.5-14.0)
[2018-05-31 15:59] LABS: ANION GAP 7 (5-19); BLOOD UREA NITROGEN 25 mg/dL (7-20); CALCIUM 9.2 mg/dL (8.4-10.2); CARBON DIOXIDE 20 mmol/L (22-30); CHLORIDE 108 mmol/L (98-107); GLUCOSE 104 mg/dL (75-110); POTASSIUM 4.7 mmol/L (3.6-5.0); SODIUM 135.2 mmol/L (137-145); URIC ACID 6.7 mg/dL (2.5-6.2)
[2018-05-31 16:08] LABS: ADD MANUAL MICROSCOPIC YES; APPEARANCE,URINE CLEAR; BILIRUBIN,URINE NEGATIVE (NEGATIVE); COLOR,URINE LIGHT YELLOW; GLUCOSE, URINE NEGATIVE (NEGATIVE); KETONES,URINE NEGATIVE (NEGATIVE); LEUKOCYTE ESTERASE,URINE NEGATIVE (NEGATIVE); NITRITE,URINE NEGATIVE (NEGATIVE); PROTEIN,URINE >=500 mg/dL (NEGATIVE); URINE CREATININE 141.2 mg/dL (16-327); URINE SPECIFIC GRAVITY 1.023; UROBILINOGEN,URINE NEGATIVE mg/dL (<2.0)
[2018-05-31 16:09] LABS: BACTERIA,URINE 1+ /HPF; WBC,URINE 0-1 /HPF
[2018-05-31 17:27] LABS: UR PRO/CREAT RATIO RESULT 1.8 mg/mg (0.0-0.2); URINE PROTEIN 260.9 mg/dL (<12)
[2018-06-01 17:31] LABS: IRON(TIBC) 50.5 ug/dL (37-170)
== END ==
LOC: OD 14:20
PROVIDERS: ATTEND Internal Medicine Nephrology
DX: R80.9 Proteinuria, unspecified (principal)
CPT/HCPCS: 36415; 80048; 81001; 82570; 82728; 83540; 83550; 84156; 84550; 85027

== ENCOUNTER → 2018-06-28 | Outpatient (CLI) | payer BC, MEDICAID ==
[2018-06-28 16:05] LABS: ABSOLUTE EOSINOPHILS # (AUTO) 0.1 10^3/uL (0.0-0.6); ABSOLUTE LYMPHOCYTES (AUTO) 1.7 10^3/uL (0.5-4.7); ABSOLUTE MONOCYTES (AUTO) 0.4 10^3/uL (0.1-1.4); ABSOLUTE NEUT (AUTO) 7.1 10^3/uL (1.7-8.2); BASOPHILS % (AUTO) 0.2 % (0-2); EOSINOPHILS % (AUTO) 1.1 % (0-6); HEMATOCRIT 29.5 % (36.0-47.0); HEMOGLOBIN 10.2 g/dL (12.0-15.5); LYMPHOCYTES % (AUTO) 18.1 % (13-45); MEAN CORPUSCULAR HEMOGLOBIN 27.4 pg (27.0-33.4); MEAN CORPUSCULAR HGB CONC 34.4 g/dL (32.0-36.0); MEAN CORPUSCULAR VOLUME 80 fl (80-97); MONOCYTES % (AUTO) 4.8 % (3-13); PLATELET COUNT 423 10^3/uL (150-450); RED BLOOD COUNT 3.71 10^6/uL (3.72-5.28); RED CELL DISTRIBUTION WIDTH 15.3 % (11.5-14.0); SEGMENTED NEUTROPHILS % (AUTO) 75.8 % (42-78); TOTAL CELLS COUNTED % (AUTO) 100 %; WHITE BLOOD COUNT 9.3 10^3/uL (4.0-10.5)
[2018-06-28 16:38] LABS: ALANINE AMINOTRANSFERASE 37 U/L (9-52); ASPARTATE AMINO TRANSFERASE 69 U/L (14-36); URIC ACID 7.2 mg/dL (2.5-6.2)
== END ==
LOC: OD 14:32
PROVIDERS: ATTEND Registered Nurse Women's Health Care, Ambulatory
DX: O16.9 Unspecified maternal hypertension, unspecified trimester (principal)
CPT/HCPCS: 36415; 82565; 83615; 84450; 84460; 84550; 85025

== ENCOUNTER 2018-06-29 10:49 | Outpatient (CLI) | payer BC, MEDICAID ==
[2018-06-29] MEDS ORDERED: BETAMET ACET/BETAMET NA INJ 6 MG/1 ML IM ONE (11:24)
[2018-06-29] MEDS ORDERED: BETAMET ACET/BETAMET NA INJ 6 MG/1 ML ONE (11:40)
[2018-06-29 11:59] LABS: ABSOLUTE EOSINOPHILS # (AUTO) 0.1 10^3/uL (0.0-0.6); ABSOLUTE LYMPHOCYTES (AUTO) 1.9 10^3/uL (0.5-4.7); ABSOLUTE MONOCYTES (AUTO) 0.6 10^3/uL (0.1-1.4); ABSOLUTE NEUT (AUTO) 5.1 10^3/uL (1.7-8.2); BASOPHILS % (AUTO) 0.2 % (0-2); EOSINOPHILS % (AUTO) 1.8 % (0-6); HEMATOCRIT 27.6 % (36.0-47.0); HEMOGLOBIN 9.4 g/dL (12.0-15.5); LYMPHOCYTES % (AUTO) 24.7 % (13-45); MEAN CORPUSCULAR HGB CONC 34.3 g/dL (32.0-36.0); MEAN CORPUSCULAR VOLUME 79 fl (80-97); MONOCYTES % (AUTO) 8.1 % (3-13); PLATELET COUNT 394 10^3/uL (150-450); RED CELL DISTRIBUTION WIDTH 15.1 % (11.5-14.0); SEGMENTED NEUTROPHILS % (AUTO) 65.2 % (42-78); TOTAL CELLS COUNTED % (AUTO) 100 %; WHITE BLOOD COUNT 7.9 10^3/uL (4.0-10.5)
[2018-06-29 12:11] LABS: APPEARANCE,URINE CLOUDY; BILIRUBIN,URINE SMALL (NEGATIVE); COLOR,URINE AMBER; GLUCOSE, URINE 50 mg/dL (NEGATIVE); KETONES,URINE TRACE mg/dL (NEGATIVE); LEUKOCYTE ESTERASE,URINE NEGATIVE (NEGATIVE); NITRITE,URINE NEGATIVE (NEGATIVE); PROTEIN,URINE >=500 mg/dL (NEGATIVE); URINE SPECIFIC GRAVITY 1.043
[2018-06-29 12:22] LABS: URINE AMPHETAMINES SCREEN NEGATIVE; URINE BARBITURATES SCREEN NEGATIVE; URINE BENZODIAZEPINES SCREEN NEGATIVE; URINE COCAINE SCREEN NEGATIVE; URINE MARIJUANA (THC) SCREEN NEGATIVE; URINE METHADONE SCREEN NEGATIVE; URINE PHENCYCLIDINE SCREEN NEGATIVE
[2018-06-29 12:25] LABS: ALANINE AMINOTRANSFERASE 41 U/L (9-52); ALBUMIN 2.3 g/dL (3.5-5.0); ALKALINE PHOSPHATASE 78 U/L (38-126); ANION GAP 10 (5-19); ASPARTATE AMINO TRANSFERASE 64 U/L (14-36); BILIRUBIN,TOTAL 0.1 mg/dL (0.2-1.3); BLOOD UREA NITROGEN 17 mg/dL (7-20); CALCIUM 8.4 mg/dL (8.4-10.2); CARBON DIOXIDE 22 mmol/L (22-30); CHLORIDE 106 mmol/L (98-107); GLUCOSE 104 mg/dL (75-110); POTASSIUM 3.8 mmol/L (3.6-5.0); SODIUM 137.5 mmol/L (137-145); TOTAL PROTEIN 5.1 g/dL (6.3-8.2); URIC ACID 6.8 mg/dL (2.5-6.2)
[2018-06-29] MEDS ORDERED: LABETALOL HCL 200 MG TABLET ONE ×2 (13:26)
[2018-06-29] MEDS ORDERED: HYDRALAZINE HCL INJ/PF 20 MG/1 ML SDV ONE (14:05)
--- NOTE | 2018-06-29 14:13 | PDOC TRANSFER SUMMARY ---
General Admission Date/PCP: JOSE BUSH NP Admission Date: 06/29/18 Transfer Date: 06/29/18 Accepting Facility: [facility] Accepting Physician: Shaista Yu Resuscitation Status: Full Code - Transfer Diagnosis (1) Is this a current diagnosis for this admission?: Yes (2) Chronic hypertension affecting Is this a current diagnosis for this admission?: Yes (3) Nephropathy Is this a current diagnosis for this admission?: Yes (4) Diabetes in Is this a current diagnosis for this admission?: Yes - Transfer Medications Home Medications: Aspirin [Aspirin 81 mg Chewable Tablet] 81 mg PO DAILY 06/29/18 Enoxaparin Sodium [Lovenox] 40 mg SUBCUT HSP PRN 06/29/18 Glyburide 2.5 mg PO HSP PRN 06/29/18 Labetalol HCl 150 mg PO DAILY 06/29/18 Labetalol HCl 300 mg PO BID 06/29/18 Metformin HCl 500 mg PO BID 06/29/18 - Allergies Allergies/Adverse Reactions: No Known Allergies Allergy (Verified 02/25/18 15:00) - Diet/Activity Discharge Diet: As Tolerated Discharge Activity: Bedrest Hospital Course Hospital Course: patient was sent from [facility] for evaluation due to her worsening blood pressures and concerns for increasing nephropathy based on laboratory results. Pt's creatinine increased from 1.29 to 1.36 in less than 24 hours. Her AST is stable but increased at 64. Uric Acid also stable at 6.9. Physical Exam Vital Signs: Intake & Output 06/28/18 06/29/18 06/30/18 06:59 06:59 06:59 Weight 126.2 kg General appearance: PRESENT: no acute distress, cooperative Head exam: PRESENT: atraumatic GI/Abdominal exam: PRESENT: soft - gravid and nontender. Extremities exam: PRESENT: full ROM, other - no tenderness or edema. no clubbing Results Laboratory Results: 06/29/18 11:44 06/29/18 11:44 06/29/18 06/29/18 06/29/18 11:05 11:44 11:44 WBC 7.9 RBC 3.50 L Hgb 9.4 L Hct 27.6 L MCV 79 L MCH 27.0 MCHC 34.3 RDW 15.1 H Plt Count 394 Seg Neutrophils % 65.2 Lymphocytes % 24.7 Monocytes % 8.1 Eosinophils % 1.8 Basophils % 0.2 Absolute Neutrophils 5.1 Absolute Lymphocytes 1.9 Absolute Monocytes 0.6 Absolute Eosinophils 0.1 Absolute Basophils 0.0 Sodium 137.5 Potassium 3.8 Chloride 106 Carbon Dioxide 22 Anion Gap 10 BUN 17 Creatinine 1.36 H Est GFR ( Amer) 54 L Est GFR (Non-Af Amer) 45 L Glucose 104 Uric Acid 6.8 H Calcium 8.4 Total Bilirubin 0.1 L AST 64 H ALT 41 Alkaline Phosphatase 78 Total Protein 5.1 L Albumin 2.3 L Urine Color BECKY Urine Appearance CLOUDY Urine pH 5.0 Ur Specific [place] 1.043 Urine Protein >=500 H Urine Glucose (UA) 50 H Urine Ketones TRACE H Urine Blood SMALL H Urine Nitrite NEGATIVE Ur Leukocyte Esterase NEGATIVE Urine WBC (Auto) 13 Urine RBC (Auto) 16 Plan Discharge Plan: discussed with MFM Dr. Robertson who agreed with transfer to tertiary facility and knows the patient well from her office. Dr. Yu contacted as OB operations support specialist who accepted patient to the antepartum service. I discussed with the patient at length that due to her pre-existing renal disease that is worsening that hospitalization until delivery is recommended and warranted. Her potential for rapid degeneration of her condition is significant. With her early EGA before 32 weeks and need for other specialized services such as cardiology, nephrology and endocrinology as well as need for Level III NICU in event of early delivery will transfer to tertiary facility. Betamethasone protocol intitiated for benefit. Time Spent: Greater than 30 Minutes
[2018-06-29] MEDS ORDERED: HYDRALAZINE HCL INJ/PF 20 MG/1 ML SDV IV ONE (15:00)
[2018-06-29 15:43] LABS: UR PRO/CREAT RATIO RESULT 8.7 mg/mg (0.0-0.2); URINE CREATININE 423.3 mg/dL (16-327)
== END 2018-06-29 14:38 | disposition short-term general hospital (02) ==
LOC: LC 10:49
PROVIDERS: ATTEND Obstetrics & Gynecology
PROC: 4A1HXCZ Monitoring of Products of Conception, Cardiac Rate, External Approach (ICD-10-PCS; principal; 2018-06-29)
DX: O10.912 Unspecified pre-existing hypertension complicating pregnancy, second trimester (principal); O24.112 Pre-existing type 2 diabetes mellitus, in pregnancy, second trimester; E11.9 Type 2 diabetes mellitus without complications; O26.832 Pregnancy related renal disease, second trimester; N28.9 Disorder of kidney and ureter, unspecified; Z3A.26 26 weeks gestation of pregnancy
CPT/HCPCS: 59899; 96372; 36415; 83615; 84156; 84550; 82570; 85025; 80053; 81001; 80307; J0360; J0702

== ENCOUNTER 2019-03-21 09:13 | Emergency (ER) | payer BC, MEDICAID ==
[2019-03-21 09:19] VITALS: BP 150/95
--- NOTE | 2019-03-21 09:55 | ER Document Report ---
Addendum entered and electronically signed by ALONZO GOLDSTEIN PA-C 03/21/19 09:58: Discharge - Discharge Clinical Impression: Sore throat Condition: Good Disposition: HOME, SELF-CARE Instructions: Sore Throat ([facility]) Additional Instructions: You are seen in the emergency department for a sore throat. You either have a very minor viral illness or there is an allergic component to this. Your lungs sounded good and I have very low concern that you have strep throat. Please take 1000 mg of Tylenol every 6 hours for pain and discomfort, use a saline nose spray to help rinse your nasal passages for relief, and you can start using Flonase 2 puffs in each nostril daily. You can also try using a [place] pot. I have also given you a prescription for Tessalon Perles which she should take no more than once every 8 hours to help with relief of your sore throat. If you develop fever, your throat starts to close up, you have severe difficulty breathing or significant chest pain, or you have any other concerns please merely return to the emergency department. Prescriptions: Benzonatate [Tessalon Perles 100 mg Capsule] 100 mg PO Q8HP PRN #40 capsule PRN Reason: Forms: Return to Work Referrals: JOSE BUSH NP [NO LOCAL MD] - Follow up as needed Original Note: HPI - HPI Patient complains to provider of: sore throat Time Seen by Provider: 03/21/19 09:40 Pain Level: 3 Context: 33-year-old female with hypertension and [id number] diabetes mellitus presents emergency department with chief complaint of left-sided sore throat for the last 48 hours. Patient states that she has an 8-month-old child who has been off and on sick for since December. Patient states that her throat is "scratchy" and she has the feeling of "my head feels full". Patient denies any shortness of breath, cough or productive cough, wheezing, chest pain, denies ear pain, denies rhinorrhea. Patient denies fevers or chills, nausea or vomiting. Patient has tried to take Mucinex with no relief. Patient is concerned because she has not been sick in a long time to get "checked out". Patient has not seen her primary care provider for this. - EENT EENT: REPORTS: Sore Throat - REPRODUCTIVE Reproductive: REPORTS: : Past Medical History - Social History Smoking Status: Never Smoker Family History: Reviewed & Not Pertinent Patient has suicidal ideation: No Patient has homicidal ideation: No - Past Medical History Cardiac Medical History: Reports: Hx Hypertension Pulmonary Medical History: Denies: Hx Asthma, Hx Bronchitis, Hx Pneumonia Neurological Medical History: Reports: Hx Migraine Endocrine Medical History: Reports: Hx Diabetes Mellitus Type 2 Renal/ Medical History: Denies: Hx Peritoneal Dialysis GI Medical History: Reports: Hx Gastroesophageal Reflux Disease Past Surgical History: Reports: Other - Eye surgery - Immunizations Hx Diphtheria, Pertussis, Tetanus Vaccination: Yes Vertical Provider Document - CONSTITUTIONAL Notes: Reviewed vital signs and nursing note as charted by RN. CONSTITUTIONAL: Well-appearing HEAD: Normocephalic; atraumatic; No swelling EYES: PERRL; Conjunctivae clear, no drainage; EOMI ENT: External ears without lesions; External auditory canal is patent; TMs without erythema, landmarks clear and well visualized; no rhinorrhea; Pharynx without erythema or lesions, no tonsillar hypertrophy, airway patent, mucous membranes pink and moist NECK: Supple, no cervical lymphadenopathy, no masses CARD: Regular rate and rhythm; no murmurs, no rubs, no gallops RESP: Respiratory rate and effort are normal. There is normal chest excursion. No respiratory distress, no retractions, no stridor, no nasal flaring, no accessory muscle use. The lungs are clear to auscultation bilaterally, no wheezing, no rales, no rhonchi. SKIN: Normal color for age and race; warm; dry; good turgor; no acute lesions noted NEURO: No facial asymmetry; Moves all extremities equally; Motor and sensory function intact - INFECTION CONTROL TRAVEL OUTSIDE OF THE [place] IN LAST 30 DAYS: No Course - Re-evaluation Re-evalutation: 03/21/19 09:53 Overall well-appearing, afebrile, symptoms consistent with a minor viral illness or allergic component. Patient is afebrile and I have very low suspicion for streptococcal pharyngitis or a [employer]. Plan is to give patient Tessalon Perles, I educated patient on saline spray rinse and use of a [place] pot, and told patient to start using fluticasone nasal spray daily. Patient agrees to plan and is stable for discharge. - Vital Signs Vital signs: Temp Pulse Resp BP Pulse Ox 97.4 F 72 16 150/95 H 98 03/21/19 09:18 03/21/19 09:18 03/21/19 09:18 03/21/19 09:18 03/21/19 09:18 Discharge - Discharge Clinical Impression: Sore throat Condition: Good Disposition: HOME, SELF-CARE Instructions: Sore Throat ([facility]) Additional Instructions: You are seen in the emergency department for a sore throat. You either have a very minor viral illness or there is an allergic component to this. Your lungs sounded good and I have very low concern that you have strep throat. Please take 1000 mg of Tylenol every 6 hours for pain and discomfort, use a saline nose spray to help rinse your nasal passages for relief, and you can start using Flonase 2 puffs in each nostril daily. You can also try using a [place] pot. I have also given you a prescription for Tessalon Perles which she should take no more than once every 8 hours to help with relief of your sore throat. If you develop fever, your throat starts to close up, you have severe difficulty breathing or significant chest pain, or you have any other concerns please merely return to the emergency department. Prescriptions: Benzonatate [Tessalon Perles 100 mg Capsule] 100 mg PO Q8HP PRN #40 capsule PRN Reason: Referrals: JOSE BUSH NP [NO LOCAL MD] - Follow up as needed
== END 2019-03-21 10:00 | disposition home or self-care (01) ==
LOC: ER 09:13
DX: J02.9 Acute pharyngitis, unspecified (principal); I10 Essential (primary) hypertension; E11.9 Type 2 diabetes mellitus without complications
CPT/HCPCS: 99282

== ENCOUNTER → 2019-03-29 | Outpatient (CLI) | payer BC ==
[2019-03-29 12:22] LABS: ABSOLUTE EOSINOPHILS # (AUTO) 0.2 10^3/uL (0.0-0.6); ABSOLUTE LYMPHOCYTES (AUTO) 1.5 10^3/uL (0.5-4.7); ABSOLUTE MONOCYTES (AUTO) 0.3 10^3/uL (0.1-1.4); ABSOLUTE NEUT (AUTO) 4.2 10^3/uL (1.7-8.2); BASOPHILS % (AUTO) 0.7 % (0-2); EOSINOPHILS % (AUTO) 2.5 % (0-6); HEMATOCRIT 33.5 % (36.0-47.0); HEMOGLOBIN 10.8 g/dL (12.0-15.5); LYMPHOCYTES % (AUTO) 24.3 % (13-45); MEAN CORPUSCULAR HEMOGLOBIN 23.3 pg (27.0-33.4); MEAN CORPUSCULAR HGB CONC 32.3 g/dL (32.0-36.0); MEAN CORPUSCULAR VOLUME 72 fl (80-97); MONOCYTES % (AUTO) 5.3 % (3-13); PLATELET COUNT 340 10^3/uL (150-450); RED BLOOD COUNT 4.64 10^6/uL (3.72-5.28); RED CELL DISTRIBUTION WIDTH 18.1 % (11.5-14.0); SEGMENTED NEUTROPHILS % (AUTO) 67.2 % (42-78); TOTAL CELLS COUNTED % (AUTO) 100 %; WHITE BLOOD COUNT 6.3 10^3/uL (4.0-10.5)
[2019-03-29 12:31] LABS: APPEARANCE,URINE SLIGHTLY-CLOUDY; BILIRUBIN,URINE NEGATIVE (NEGATIVE); COLOR,URINE YELLOW; GLUCOSE, URINE 50 mg/dL (NEGATIVE); KETONES,URINE NEGATIVE (NEGATIVE); LEUKOCYTE ESTERASE,URINE TRACE (NEGATIVE); NITRITE,URINE NEGATIVE (NEGATIVE); PROTEIN,URINE >=500 mg/dL (NEGATIVE); URINE SPECIFIC GRAVITY 1.017; UROBILINOGEN,URINE NEGATIVE mg/dL (<2.0)
[2019-03-29 12:49] LABS: ANION GAP 6 (5-19); BLOOD UREA NITROGEN 33 mg/dL (7-20); CALCIUM 8.5 mg/dL (8.4-10.2); CARBON DIOXIDE 23 mmol/L (22-30); CHLORIDE 108 mmol/L (98-107); GLUCOSE 131 mg/dL (75-110); POTASSIUM 4.5 mmol/L (3.6-5.0); URIC ACID 6.4 mg/dL (2.5-6.2)
== END ==
LOC: OD 11:52
PROVIDERS: ATTEND Internal Medicine Nephrology
DX: R80.9 Proteinuria, unspecified (principal)
CPT/HCPCS: 36415; 80048; 81001; 84550; 85025

== ENCOUNTER 2019-04-04 09:14 | Emergency (ER) | payer BC ==
[2019-04-04 09:38] VITALS: BP 154/91
--- NOTE | 2019-04-04 09:49 | ER Document Report ---
HPI - HPI Time Seen by Provider: 04/04/19 09:41 Pain Level: 3 Notes: Patient is a 34-year-old female presented to the emergency department chief complaint of sore throat that has been going on for 3 days. Patient reports she had a fever with it 3 days ago of 101. She reports history of strep throat in the past, states this feels similar. She is speaking in full and complete sentences and is able to swallow without difficulty. - REPRODUCTIVE Reproductive: DENIES: : Past Medical History - General Information source: Patient - Social History Smoking Status: Never Smoker Frequency of alcohol use: None Drug Abuse: None Family History: Reviewed & Not Pertinent - Past Medical History Cardiac Medical History: Reports: Hx Hypertension Pulmonary Medical History: Denies: Hx Asthma, Hx Bronchitis, Hx Pneumonia Neurological Medical History: Reports: Hx Migraine Endocrine Medical History: Reports: Hx Diabetes Mellitus Type 2 Renal/ Medical History: Denies: Hx Peritoneal Dialysis GI Medical History: Reports: Hx Gastroesophageal Reflux Disease Past Surgical History: Reports: Hx Section, Other - Eye surgery - Immunizations Hx Diphtheria, Pertussis, Tetanus Vaccination: Yes Vertical Provider Document - CONSTITUTIONAL Notes: PHYSICAL EXAMINATION: GENERAL: Well-appearing, well-nourished and in no acute distress. HEAD: Atraumatic, normocephalic. EYES: Pupils equal round extraocular movements intact, conjunctiva are normal. ENT: Nares patent, mild tonsillar swelling noted, no exudates, mild erythema, uvula midline, no evidence of peritonsillar abscess. NECK: Normal range of motion, no cervical lymphadenopathy. LUNGS: No respiratory distress, lung sounds clear and equal bilaterally. Musculoskeletal: Normal range of motion NEUROLOGICAL: Normal speech, normal gait. PSYCH: Normal mood, normal affect. SKIN: Warm, Dry, normal turgor, no rashes or lesions noted. - INFECTION CONTROL TRAVEL OUTSIDE OF THE [place] IN LAST 30 DAYS: No Course - Re-evaluation Re-evalutation: 04/04/19 09:48 Patient appears well, nontoxic is alert, oriented and answering all questions. She is speaking in full sentences and swallowing without difficulty. Will obtain rapid strep and sent to the lab. Patient agreeable with plan of care. 04/04/19 10:32 Rapid strep was negative, throat culture pending pump, patient treated with Decadron. - Vital Signs Vital signs: Temp Pulse Resp BP Pulse Ox 98.5 F 79 18 154/91 H 99 04/04/19 09:36 04/04/19 09:36 04/04/19 09:36 04/04/19 09:36 04/04/19 09:36 Discharge - Discharge Clinical Impression: Sore throat Condition: Stable Disposition: HOME, SELF-CARE Additional Instructions: SORE THROAT: Sore throats may be caused by viruses, bacteria, or fungi. Most are due to a virus, and must get better on their own. Bacterial sore throats, particularly those due to "strep," need treatment with antibiotics. If an antibiotic is prescribed, be sure to take the medication for a full 10 days. Failure to take the antibiotic can result in complications such as rheumatic fever. Sometimes, an injection of antibiotics is given instead of pills or liquid. This single "shot" is equal in effectiveness to the oral medication. To relieve symptoms, take acetaminophen for pain. Sip clear liquids frequently, or eat popsicles or ice chips. Anesthetic sprays or lozenges may help. Make sure the air in the room is not too dry. Avoid using decongestants or antihistamines. Call the doctor if there is no improvement in two days, or if you have difficulty breathing, increasing throat pain, high fever, rash, or frequent vomiting. STEROID MEDICATION: You have been given a medicine of the cortisone/steroid class. This medication is used to control inflammation or allergy. It is usually only given for a short period of time, until the acute process subsides. There are usually no side effects from short-term use of cortisone-like medications. Some persons feel an increased sense of well-being and are not sleepy at bedtime. Long-term use of cortisone medications is best avoided, unless required for a severe condition. If your condition does not remit, or relapses after the course of corticosteroid medication, you should consult your physician. FOLLOW-UP CARE: If you have been referred to a physician for follow-up care, call the physicians office for an appointment as you were instructed or within the next two days. If you experience worsening or a significant change in your symptoms, notify the physician immediately or return to the Emergency Department at any time for re-evaluation. Forms: Return to Work Referrals: Mikey ROYAL MD [ACTIVE STAFF] - Follow up as needed
[2019-04-04] MEDS ORDERED: DEXAMETHASONE 4 MG TABLET PO ONE (10:21)
== END 2019-04-04 10:37 | disposition home or self-care (01) ==
LOC: ER 09:14
DX: J02.9 Acute pharyngitis, unspecified (principal); I10 Essential (primary) hypertension; E11.9 Type 2 diabetes mellitus without complications
CPT/HCPCS: 87070; 87880; 99283

== ENCOUNTER 2019-04-06 09:17 | Emergency (ER) | payer BC ==
[2019-04-06 09:26] VITALS: BP 154/97
--- NOTE | 2019-04-06 10:04 | ER Document Report ---
HPI - HPI Time Seen by Provider: 04/06/19 09:51 Pain Level: 3 Notes: Patient is a 34-year-old female with history of hypertension and type 2 diabetes who presents complaining of sore throat over the past 5 days intermittently. Patient states that she was here couple days ago and had a negative strep at that time, but has had intermittent lingering symptoms and was evaluated again as well as an extension on her work note. She is otherwise able to eat and drink without difficulty. She is urinating normally and having normal bowel movements. No other recent illness. Denies any headache, fever, neck pain, URI, chest pain, palpitations, syncope, cough, shortness of breath, wheeze, dyspnea, abdominal pain, nausea/vomiting/diarrhea, urinary retention, dysuria, hematuria, or rash. - ROS Systems Reviewed and Negative: Yes All other systems reviewed and negative - CONSTITUTIONAL Constitutional: DENIES: Fever, Chills - EENT EENT: REPORTS: Sore Throat - x 5 day. DENIES: Ear Pain, Eye problems - NEURO Neurology: DENIES: Headache, Weakness, Vision blurred, Dizzinesss / Vertigo - CARDIOVASCULAR Cardiovascular: DENIES: Chest pain - RESPIRATORY Respiratory: DENIES: Trouble Breathing, Coughing - REPRODUCTIVE Reproductive: DENIES: : - MUSCULOSKELETAL Musculoskeletal: DENIES: Extremity pain Past Medical History - Social History Smoking Status: Never Smoker Chew tobacco use (# tins/day): No Frequency of alcohol use: None Family History: Reviewed & Not Pertinent Patient has suicidal ideation: No Patient has homicidal ideation: No - Past Medical History Cardiac Medical History: Reports: Hx Hypertension Pulmonary Medical History: Denies: Hx Asthma, Hx Bronchitis, Hx Pneumonia Neurological Medical History: Reports: Hx Migraine Endocrine Medical History: Reports: Hx Diabetes Mellitus Type 2 Renal/ Medical History: Denies: Hx Peritoneal Dialysis GI Medical History: Reports: Hx Gastroesophageal Reflux Disease Past Surgical History: Reports: Hx Section, Other - Eye surgery - Immunizations Hx Diphtheria, Pertussis, Tetanus Vaccination: Yes Vertical Provider Document - CONSTITUTIONAL Agree With Documented VS: Yes Notes: PHYSICAL EXAMINATION: GENERAL: Well-appearing, well-nourished and in no acute distress. A&Ox4. Answers questions appropriately. Moves comfortably w/o notable distress HEAD: Atraumatic, normocephalic. EYES: Pupils equal round and reactive to light, extraocular movements intact, sclera anicteric, conjunctiva are normal. ENT: EAC clear b/l. TM's intact b/l without erythema, fluid, or perforation. Nares patent and with clear discharge. oropharynx w/o erythema without exudates. 1+ tonsilar hypertrophy with minimal to no erythema no exudate. No palatine shift. Uvula midline. No tongue protrusion. No drooling, hoarseness, or airway compromise. Moist mucous membranes. No sinus tenderness. NECK: Normal range of motion, supple without lymphadenopathy. No rigidity/meningismus. LUNGS: Breath sounds clear to auscultation bilaterally and equal. No wheezes rales or rhonchi. No retractions HEART: Regular rate and rhythm without murmurs, rubs, gallops. NEUROLOGICAL: Normal speech, normal gait. PSYCH: Normal mood, normal affect. SKIN: Warm, Dry, normal turgor, no rashes or lesions noted. - INFECTION CONTROL TRAVEL OUTSIDE OF THE [place] IN LAST 30 DAYS: No Course - Re-evaluation Re-evalutation: 04/06/19 Patient is an afebrile, well-hydrated, 34-year-old female who presents with sore throat, suspect viral. Vitals are acceptable without significant tachycardia, tachypnea, or hypoxia. PE is otherwise unremarkable. Rapid strep negative with throat culture pending. Patient is nontoxic-appearing and is tolerating p.o. without difficulty. No significant tonsillar hypertrophy. Low suspicion for any meningitis, sepsis, peritonsillar/pharyngeal abscess, respiratory compromise, Demetrio's, or other emergent systemic condition at this time. Patient is aware this condition can change from initial presentation and she needs to monitor symptoms closely. Conservative measures otherwise for symptoms. Recheck with your PCM in 2-3 days. Return to the ED with any worsening/concerning symptoms otherwise as reviewed in discharge. Patient is in agreement. - Vital Signs Vital signs: Temp Pulse Resp BP Pulse Ox 97.7 F 79 172/108 H 98 04/06/19 09:23 04/06/19 09:23 04/06/19 09:23 04/06/19 09:23 Discharge - Discharge Clinical Impression: Sore throat Condition: Stable Disposition: HOME, SELF-CARE Instructions: Sore Throat ([facility]) Additional Instructions: Maintain adequate fluid intake Take meds as directed Salt water gargles, throat sprays, mouthwash rinse, peroxide gargles tylenol/ibuprofen as needed over the counter cold medication as needed for symptoms F/u: with your PCM in 2-3 days for a recheck Consider consult with ENT for ongoing/worsening symptoms Return to the ED with any fever, worsening pain, chest pain, neck pain/stiffness, shortness of breath, cough, drooling, trouble swallowing/breathing, abdominal pain, n/v/d, rash, or worsening/concerning symptoms otherwise. Forms: Elevated Blood Pressure, Return to Work Referrals: JAM WILKES MD [Primary Care Provider] - Follow up as needed GONZALEZ GOVEA DO [ASSOCIATE] - Follow up as needed
== END 2019-04-06 10:26 | disposition home or self-care (01) ==
LOC: ER 09:17
DX: J02.9 Acute pharyngitis, unspecified (principal); E11.9 Type 2 diabetes mellitus without complications; I10 Essential (primary) hypertension
CPT/HCPCS: 87070; 87880; 99283